=== PATIENT | male | born 1995 | race African-American/Black ===

== ENCOUNTER 2018-03-18 13:59 | Emergency (ER) | payer MEDICAID, OTHER ==
[~2018-03-18] VITALS: Ht 185.4 cm; Wt 106.5 kg
[2018-03-18 14:28] VITALS: BP 147/102
[2018-03-18 14:51] LABS: BASOPHILS # (AUTO) 0.1 X10'3 (0-0.2); BASOPHILS % (AUTO) 1.2 % (0-1); EOSINOPHILS # (AUTO) 0.2 X10'3 (0-0.9); EOSINOPHILS % (AUTO) 2.5 % (0-6); HEMATOCRIT 48.5 % (42.0-52.0); HEMOGLOBIN 15.9 g/dl (14.0-17.9); LYMPHOCYTES # (AUTO) 1.7 X10'3 (1.1-4.8); LYMPHOCYTES % (AUTO) 21.2 % (21-51); MEAN CORPUSCULAR HEMOGLOBIN 32.3 PG (27.0-31.0); MEAN CORPUSCULAR HGB CONC 32.7 % (33.0-36.5); MEAN CORPUSCULAR VOLUME 98.5 FL (78-98); MEAN PLATELET VOLUME 7.2 FL (7.4-10.4); MONOCYTES # (AUTO) 0.5 X10'3 (0-0.9); MONOCYTES % (AUTO) 5.9 % (2-12); NEUTROPHILS # (AUTO) 5.6 X10'3 (1.8-7.7); NEUTROPHILS % (AUTO) 69.2 % (42-75); PLATELET COUNT 375 X10'3 (140-440); RED BLOOD COUNT 4.93 X10'6 (4.70-6.10); RED CELL DISTRIBUTION WIDTH 13.1 % (11.5-14.5); WHITE BLOOD COUNT 8.1 X10'3 (4.5-11.0)
[2018-03-18 15:01] LABS: CLARITY,URINE CLEAR (Clear); COLOR,URINE YELLOW (Yellow); UA COLLECTION TYPE CLN CATCH MIDSTREAM
[2018-03-18 15:02] LABS: GLUCOSE, URINE NEGATIVE (Neg); KETONES,URINE NEGATIVE (Neg); LEUKOCYTE ESTERASE ,URINE NEGATIVE (Neg); NITRITES, URINE NEGATIVE (Neg); OCCULT BLOOD,URINE NEGATIVE (Neg); PROTEIN,URINE TRACE mg/dl (Neg)
[2018-03-18 15:06] LABS: ALANINE AMINOTRANSFERASE 18 U/L (12-78); ALBUMIN 3.8 G/DL (3.4-5.0); ALBUMIN/GLOBULIN RATIO 0.9 (1.1-1.5); ALKALINE PHOSPHATASE 51 IU/L (46-116); ANION GAP 12 (8-16); ASPARTATE AMINO TRANSFERASE 25 U/L (10-37); BILIRUBIN,TOTAL 0.5 MG/DL (0.1-1.0); BLOOD UREA NITROGEN 12 MG/DL (7-18); CHLORIDE 103 MMOL/L (99-107); GLUCOSE 95 MG/DL (70-104); INR 1.1 INR; POTASSIUM 3.9 MMOL/L (3.5-5.1); PROTHROMBIN TIME 10.8 SECONDS (9.0-12.0); SODIUM 141 MMOL/L (135-145); TOTAL CARBON DIOXIDE 26.4 MMOL/L (24-32); TOTAL PROTEIN 8.1 G/DL (6.4-8.2); eGFR 90 ML/MIN
[2018-03-18 15:07] LABS: BACTERIA,URINE NONE SEEN /HPF (Neg); MUCUS STRANDS FEW /LPF (Neg); RBC,URINE 0-2 /HPF (0-2); SQUAMOUS EPITHELIAL CELL,UR FEW /LPF (FEW); WBC,URINE 0-4 /HPF (0-4)
[2018-03-18] MEDS ORDERED: proCHLORperazine 10 MG/2 ml inj IV ONE (15:55)
[2018-03-18] MEDS ORDERED: normal saline 1000ML IV soln IVB ONE ×2 (15:55)
[2018-03-18] MEDS ORDERED: pantoprazole 40 MG vial IV ONE (15:55)
[2018-03-18 16:13] LABS: LIPASE 112 U/L (73-393)
[2018-03-18] MEDS ORDERED: PANT-47 PO (16:33)
== END 2018-03-18 16:51 | disposition home or self-care (01) ==
LOC: ER 13:59
DX: R10.13 Epigastric pain (principal); R10.33 Periumbilical pain; F12.90 Cannabis use, unspecified, uncomplicated; F14.90 Cocaine use, unspecified, uncomplicated; F17.200 Nicotine dependence, unspecified, uncomplicated
CPT/HCPCS: 36415; 80053; 81001; 83690; 85025; 85610; 96374; 96375; 99283; C9113; J0780; J7030

== ENCOUNTER 2019-07-21 13:05 | Emergency (ER) | payer MEDICAID, OTHER ==
[~2019-07-21] VITALS: Ht 188 cm; Wt 125.0 kg
[~2019-07-21 13:05] MED LIST: PANT-47 PO
[2019-07-21 13:11] VITALS: BP 161/97
[2019-07-21] MEDS ORDERED: AMO250L PO (13:33)
[2019-07-21] MEDS ORDERED: IBUP100O20 PO (13:33)
== END 2019-07-21 13:40 | disposition home or self-care (01) ==
LOC: ER 13:06
DX: J02.9 Acute pharyngitis, unspecified (principal); F12.90 Cannabis use, unspecified, uncomplicated; F14.90 Cocaine use, unspecified, uncomplicated; Z79.2 Long term (current) use of antibiotics; Z79.899 Other long term (current) drug therapy
CPT/HCPCS: 99283

== ENCOUNTER 2020-05-20 08:11 | Emergency (ER) | payer MEDICAID, OTHER ==
[~2020-05-20] VITALS: Ht 185.4 cm; Wt 99.0 kg
[2020-05-20] MEDS ORDERED: pantoprazole 40 MG vial IV ONE (08:55)
[2020-05-20] MEDS ORDERED: ondansetron/PF 4mg/2ml inj IV ONE (08:55)
[2020-05-20] MEDS ORDERED: normal saline 1000ML IV soln IVB ONE (08:55)
[2020-05-20 09:18] VITALS: BP 146/94
[2020-05-20 09:34] LABS: BASOPHILS % (AUTO) 0.1 % (0-1); EOSINOPHILS # (AUTO) 0.1 X10'3 (0-0.9); EOSINOPHILS % (AUTO) 1.3 % (0-6); HEMATOCRIT 43.5 % (42.0-52.0); HEMOGLOBIN 14.8 g/dl (14.0-17.9); LYMPHOCYTES # (AUTO) 1.2 X10'3 (1.1-4.8); LYMPHOCYTES % (AUTO) 12.2 % (21-51); MEAN CORPUSCULAR HEMOGLOBIN 33.5 PG (27.0-31.0); MEAN CORPUSCULAR VOLUME 98.5 FL (78-98); MEAN PLATELET VOLUME 7.2 FL (7.4-10.4); MONOCYTES # (AUTO) 0.7 X10'3 (0-0.9); NEUTROPHILS # (AUTO) 8.1 X10'3 (1.8-7.7); NEUTROPHILS % (AUTO) 79.4 % (42-75); PLATELET COUNT 372 X10'3 (140-440); RED BLOOD COUNT 4.41 X10'6 (4.70-6.10); RED CELL DISTRIBUTION WIDTH 13.6 % (11.5-14.5); WHITE BLOOD COUNT 10.2 X10'3 (4.5-11.0)
[2020-05-20 09:56] LABS: ALANINE AMINOTRANSFERASE 26 U/L (12-78); ALBUMIN 3.8 G/DL (3.4-5.0); ALKALINE PHOSPHATASE 44 IU/L (46-116); ANION GAP 7 (8-16); ASPARTATE AMINO TRANSFERASE 45 U/L (10-37); BILIRUBIN,TOTAL 0.7 MG/DL (0.1-1.0); CALCIUM 8.9 MG/DL (8.5-10.1); CHLORIDE 104 MMOL/L (99-107); CREATININE 1.22 MG/DL (0.60-1.10); ETHANOL < 0.010 GM/DL (0.0-0.010); GLUCOSE 83 MG/DL (70-104); LIPASE < 50 U/L (73-393); POTASSIUM 3.7 MMOL/L (3.5-5.1); SODIUM 140 MMOL/L (135-145); TOTAL CARBON DIOXIDE 28.7 MMOL/L (24-32); TOTAL PROTEIN 7.8 G/DL (6.4-8.2); eGFR 87 ML/MIN
[2020-05-20 09:58] LABS: BLOOD UREA NITROGEN 18 MG/DL (7-18); BUN/CREATININE RATIO 14.8 (5.4-32.0)
[2020-05-20 11:15] LABS: URINE AMPHETAMINE SCREEN NEGATIVE (Neg); URINE BARBITUATE SCREEN NEGATIVE (Neg); URINE BENZODIAZEPINES SCREEN NEGATIVE (Neg); URINE CANNABINOID SCREEN POSITIVE (Neg); URINE COCAINE SCREEN POSITIVE (Neg); URINE METHADONE SCREEN NEGATIVE (Neg); URINE OPIATE SCREEN NEGATIVE (Neg); URINE PHENCYCLIDINE SCREEN NEGATIVE (Neg)
== END 2020-05-20 11:01 | disposition left against medical advice (07) ==
LOC: ER 08:11
DX: K29.00 Acute gastritis without bleeding (principal); F17.200 Nicotine dependence, unspecified, uncomplicated; F12.90 Cannabis use, unspecified, uncomplicated; F11.90 Opioid use, unspecified, uncomplicated; Z72.89 Other problems related to lifestyle; Z79.899 Other long term (current) drug therapy
CPT/HCPCS: 36415; 80053; 80305; 80320; 83690; 85025; 96361; 96374; 96375; 99284; C9113; J2405; J7030

== ENCOUNTER 2020-07-01 22:41 | Emergency (ER) | payer MEDICAID, OTHER ==
[~2020-07-01] VITALS: Ht 182.9 cm; Wt 104.5 kg
[2020-07-01 22:44] VITALS: BP 172/107
== END 2020-07-01 23:19 | disposition home or self-care (01) ==
LOC: ER 22:41
DX: Z02.89 Encounter for other administrative examinations (principal); F12.90 Cannabis use, unspecified, uncomplicated; Z72.89 Other problems related to lifestyle; Z79.899 Other long term (current) drug therapy
CPT/HCPCS: 99281

== ENCOUNTER 2022-09-15 19:16 | Inpatient (IN) | payer MEDICAID, OTHER ==
[~2022-09-15] VITALS: Ht 182.9 cm; Wt 107.1 kg
[2022-09-15 19:51] LABS: CLARITY,URINE SLIGHTLY CLOUDY (Clear); COLOR,URINE YELLOW (Yellow); GLUCOSE, URINE NEGATIVE (Neg); KETONES,URINE TRACE mg/dl (Neg); LEUKOCYTE ESTERASE ,URINE NEGATIVE (Neg); NITRITES, URINE NEGATIVE (Neg); OCCULT BLOOD,URINE NEGATIVE (Neg); PH,URINE 6.5 (4.8-8.0); PROTEIN,URINE 100 mg/dl (Neg)
[2022-09-15 19:56] LABS: MUCUS STRANDS MANY /LPF (Neg); UA COLLECTION TYPE CLN CATCH MIDSTREAM
[2022-09-15 19:57] LABS: SQUAMOUS EPITHELIAL CELL,UR FEW /LPF (FEW)
[2022-09-15 19:59] LABS: WBC,URINE 0-4 /HPF (0-4)
[2022-09-15 20:00] LABS: AMORPHOUS URATES 1+; BACTERIA,URINE 1+ /HPF (Neg)
[2022-09-15 20:36] LABS: BASOPHILS % (AUTO) 0.2 % (0-1); EOSINOPHILS % (AUTO) 0.1 % (0-6); HEMATOCRIT 44.8 % (42.0-52.0); HEMOGLOBIN 15.5 g/dl (14.0-17.9); LYMPHOCYTES % (AUTO) 7.4 % (21-51); MEAN CORPUSCULAR HGB CONC 34.6 g/dL (33.0-36.5); MEAN CORPUSCULAR VOLUME 95.4 FL (78-98); MONOCYTES # (AUTO) 0.7 X10'3 (0-0.9); MONOCYTES % (AUTO) 5.3 % (2-12); PLATELET COUNT 420 X10'3 (140-440); RED CELL DISTRIBUTION WIDTH 13.6 % (11.5-14.5); WHITE BLOOD COUNT 13.8 X10'3 (4.5-11.0)
[2022-09-15 20:51] LABS: ALANINE AMINOTRANSFERASE 17 U/L (12-78); ALBUMIN 4.1 G/DL (3.4-5.0); ALKALINE PHOSPHATASE 67 IU/L (46-116); ANION GAP 10 (8-16); ASPARTATE AMINO TRANSFERASE 16 U/L (10-37); BILIRUBIN,TOTAL 0.8 MG/DL (0.1-1.0); BLOOD UREA NITROGEN 9 MG/DL (7-18); BUN/CREATININE RATIO 7.6 (10.0-20.0); CALCIUM 9.6 MG/DL (8.5-10.1); CHLORIDE 100 MMOL/L (99-107); CREATININE 1.18 MG/DL (0.60-1.10); GLUCOSE 120 MG/DL (70-104); LIPASE < 50 U/L (73-393); POTASSIUM 3.7 MMOL/L (3.5-5.1); SODIUM 138 MMOL/L (135-145); TOTAL CARBON DIOXIDE 27.8 MMOL/L (24-32); TOTAL PROTEIN 8.3 G/DL (6.4-8.2); eGFR 88 ML/MIN
[2022-09-15] MEDS ORDERED: ondansetron/PF 4mg/2ml inj IV ONE (21:10)
[2022-09-15] MEDS ORDERED: morphine 4 MG/ML inj SYRINge IV PRN (21:10)
[2022-09-15] MEDS ORDERED: normal saline 1000ML IV soln IVB ONE (21:10)
[2022-09-15] MEDS ORDERED: ketorolac trometh. 30mg/ml inj. IV ONE (21:10)
[2022-09-15] MEDS ORDERED: piperacillin/tazo 3.375gm/50ml 50 ML IV ONE (21:55)
[2022-09-15 22:03] LABS: ANISOCYTOSIS FEW; PLATELET ESTIMATE NORMAL; TOTAL CELLS COUNTED 100; TOXIC VACUOLATION 1+
[2022-09-15 22:04] LABS: LARGE PLATELETS FEW
[2022-09-15] MEDS ORDERED: potassium Cl 40MEQ/1/2NS 520ml 520 ML IV PRN (22:35)
[2022-09-15] MEDS ORDERED: magnesium 2GM in 50ml NS 50 ML IV PRN (22:35)
[2022-09-15] MEDS ORDERED: magnesium 4gm in 100ml NS 100 ML IV PRN (22:35)
[2022-09-15] MEDS ORDERED: ondansetron/PF 4mg/2ml inj IV PRN (22:35)
[2022-09-15] MEDS ORDERED: acetaminophen 325mg tablet PO PRN (22:35)
[2022-09-15] MEDS: normal saline 1000ml 1,000 ML IV SCH (22:59)
[2022-09-15 23:30] VITALS: BP 150/64
--- NOTE | 2022-09-15 23:57 | NUR ---
Pt arrived to room, assessment done, patient is in minimal pain at this time and ready to sleep. Pt is pleasant and appears to be doing well at this time. Pt will call if pain increases.
[2022-09-16] VITALS (19 sets, daily range): BP systolic 130–159; BP diastolic 70–108
[2022-09-16] MEDS: morphine 2 MG/ML inj. syringe IV PRN ×3 (03:21→11:23)
[2022-09-16] MEDS: piperacillin/tazo 3.375gm/50ml 50 ML IV SCH ×3 (06:40→22:56)
--- NOTE | 2022-09-16 06:50 | NUR ---
PT SLEEPING COMFORTABLY AT THIS TIME. SIA RN TO TAKE OVER CARE.
--- NOTE | 2022-09-16 07:02 | NUR ---
Patient in room ORTHO 4022. I have received report from ROCÍO CARVALHO and had the opportunity to ask questions and assume patient care.
[2022-09-16] MEDS: K and/or MAG REPLACEMENT MC SCH ×2 (08:00→20:00)
[2022-09-16] MEDS: normal saline 1000ml 1,000 ML IV SCH ×2 (08:35→19:45)
[2022-09-16 08:41] LABS: BASOPHILS % (AUTO) 0.1 % (0-1); EOSINOPHILS # (AUTO) 0.1 X10'3 (0-0.9); EOSINOPHILS % (AUTO) 0.9 % (0-6); HEMATOCRIT 41.2 % (42.0-52.0); HEMOGLOBIN 14.1 g/dl (14.0-17.9); LYMPHOCYTES # (AUTO) 1.5 X10'3 (1.1-4.8); LYMPHOCYTES % (AUTO) 11.7 % (21-51); MEAN CORPUSCULAR HEMOGLOBIN 32.7 PG (27.0-31.0); MEAN CORPUSCULAR HGB CONC 34.2 g/dL (33.0-36.5); MEAN CORPUSCULAR VOLUME 95.6 FL (78-98); MEAN PLATELET VOLUME 7.4 FL (7.4-10.4); MONOCYTES # (AUTO) 1.3 X10'3 (0-0.9); MONOCYTES % (AUTO) 10.3 % (2-12); NEUTROPHILS # (AUTO) 9.8 X10'3 (1.8-7.7); PLATELET COUNT 390 X10'3 (140-440); RED BLOOD COUNT 4.31 X10'6 (4.70-6.10); RED CELL DISTRIBUTION WIDTH 13.8 % (11.5-14.5); WHITE BLOOD COUNT 12.7 X10'3 (4.5-11.0)
[2022-09-16 09:05] LABS: ALANINE AMINOTRANSFERASE 9 U/L (12-78); ALBUMIN/GLOBULIN RATIO 0.8 (1.1-1.5); ALKALINE PHOSPHATASE 52 IU/L (46-116); ANION GAP 10 (8-16); ASPARTATE AMINO TRANSFERASE 17 U/L (10-37); BILIRUBIN,TOTAL 0.7 MG/DL (0.1-1.0); BLOOD UREA NITROGEN 9 MG/DL (7-18); BUN/CREATININE RATIO 8.8 (10.0-20.0); CALCIUM 8.3 MG/DL (8.5-10.1); CHLORIDE 105 MMOL/L (99-107); CREATININE 1.02 MG/DL (0.60-1.10); GLUCOSE 93 MG/DL (70-104); POTASSIUM 3.6 MMOL/L (3.5-5.1); SODIUM 140 MMOL/L (135-145); TOTAL CARBON DIOXIDE 24.7 MMOL/L (24-32); TOTAL PROTEIN 6.7 G/DL (6.4-8.2); eGFR > 90 ML/MIN
--- NOTE | 2022-09-16 10:30 | NUR ---
PT STATES THAT HE IS VERY STRESSED OUT AND DOES NOT WANT TO LIVE. STATES THAT HE IS NOT SUICIDAL JUST NO DESIRE TO BE ALIVE. FEELS LIKE NOBODY IN HIS LIFE LIKES HIM OR CARES ABOUT HIM. STATES THAT HE IS NOT WILL TO TALK WITH CHILD CARE SPECIALIST, HOWEVER SOCIAL SERVICE CONSULT HAS BEEN PLACED, NOTIFIED. Addendum: 09/16/22 at 1130 by Desire Ta RN PER , NO SIT NEEDED AT THIS TIME. SS CONSULT AND CONT TO MONITOR PT AT THIS TIME
[2022-09-16] MEDS ORDERED: NO HOME MEDS (13:24)
[2022-09-16] MEDS ORDERED: LIDOcaine 1% 30ml preserv. free vial ONE (13:59)
[2022-09-16] MEDS ORDERED: BUPIVAcaine/PF 2.5 mg/ml (0.25%) 30ml vial ONE (13:59)
[2022-09-16] MEDS ORDERED: meperidine/PF 25mg/ml syringe IV PRN ×3 (15:05)
[2022-09-16] MEDS ORDERED: acetaminophen 1,000mg/100ml IV 100 ML IV PRN (15:05)
[2022-09-16] MEDS ORDERED: proCHLORperazine 10 MG/2 ml inj IV PRN (15:05)
[2022-09-16] MEDS ORDERED: morphine 2 MG/ML inj. syringe IV PRN (15:05)
[2022-09-16] MEDS ORDERED: morphine 4 MG/ML inj SYRINge IV PRN (15:05)
[2022-09-16] MEDS ORDERED: hydrALAZINE 20mg/ml inj. IV PRN (15:05)
[2022-09-16] MEDS ORDERED: ringers solution, lacted 1,000 ML IV SCH (15:05)
[2022-09-16] MEDS ORDERED: ondansetron/PF 4mg/2ml inj IV PRN (15:05)
[2022-09-16] MEDS ORDERED: ketorolac trometh. 30mg/ml inj. IV ONE (15:05)
[2022-09-16] MEDS ORDERED: sevoflurane 250ml liquid IH ONE (15:40)
[2022-09-16] MEDS ORDERED: midazolam 1 mg/ML 2ml injection ONE (15:48)
[2022-09-16] MEDS ORDERED: LIDOcaine 2% (20mg/ml) 5ml vial ONE (16:06)
[2022-09-16] MEDS ORDERED: rocuronium 10mg/ml inj IV ONE (16:06)
[2022-09-16] MEDS ORDERED: propofol inj 20 ML IV ONE (16:06)
[2022-09-16] MEDS ORDERED: fentaNYL /PF 50mcg/ml 5ml ampule ONE (16:06)
[2022-09-16] MEDS ORDERED: ondansetron/PF 4mg/2ml inj ONE (16:06)
[2022-09-16] MEDS ORDERED: dexamethasone sod phosphate 4mg/ml inj. ONE (16:07)
[2022-09-16] MEDS ORDERED: glycopyrrolate 0.2mg/ml inj ONE (16:34)
[2022-09-16] MEDS ORDERED: neostigmine methylsulfate 1 MG/ML 10ml vial ONE (16:35)
--- NOTE | 2022-09-16 17:00 | NUR ---
Received from OR via BED, accompanied by Anesthesiologist-DR. SHEA and repoRT GIVEN, PATIENT WAKING UP, NO S/S OF PAIN, V/S WNL, SCD ON, 20G TO LUE, ABDOMEN LAP SITE CLEAN W/ NO S/S OF COMPLICATIONS
[2022-09-16] MEDS ORDERED: ketorolac tromethamine 15mg/ml inj. IV SCH (17:30)
[2022-09-16] MEDS ORDERED: naloxone 0.4 mg/ml inj IV PRN (17:30)
[2022-09-16] MEDS: labetalol 20mg/4ml (5mg/ml) syringe IV PRN ×2 (17:36→17:49)
--- NOTE | 2022-09-16 18:03 | NUR ---
PT RESTING QUIETLY, DENIES PAIN, VSS-EXCEPT BP ELEVATED-TREATED WITH LABETALOL AND HYDRALAZINE, LAP SITES UNCHANGED.
--- NOTE | 2022-09-16 18:30 | NUR ---
PT AWAKE, DOING WELL, ABLE TO VOID, TOLERATING FLUIDS, SEEMS TO HAVE AN ANXIOUS PERSONALITY-ASKING LOTS OF QUESTIONS, MOVES ALOT WHEN AWAKE, ONCE IN PT'S ROOM ON ORTHO PT STARTED TALKING MORE...WHEN TOLD BP WAS HIGH PT ADMITTED TO USING A BP MED "TRIPLE C - CORACIDIN, UP TO 12 PILLS A DAY TO GET HIGH" SAID HE TOOK IT STARTING AT 10 YEARS OLD, " MAYBE THAT'S WHY MY BLOOD PRESSURE IS HIGH". ENCOURAGED HIM TO SHARE THAT WITH HIS DR'S AND TO ASK FOR PAIN MEDS WHEN NEEDED- PT DID STATE DIFFICULTY SWALLOWING PILLS, STATES "THROWS THEM BACK UP, NO MATTER HOW I TAKE THEM". VSS-BP STILL SLIGHTLY ELEVATED. BED LOW, CALL LIGHT PRESENT AND 2 RAILS UP. REPORT CALLED- ALL QUESTIONS ANSWERED, TOOL PLANNER IN TO ACCEPT PT, ATTACHED TO MONITORS, EATING JELLO AND BROTH.
--- NOTE | 2022-09-16 18:45 | NUR ---
Patient in room ORTHO 4022. I have received report from MAIA STOVALL and had the opportunity to ask questions and assume patient care.
--- NOTE | 2022-09-16 18:45 | NUR ---
Problems reprioritized. Patient report given, questions answered & plan of care reviewed with SHARATH INGRAM RN.
[2022-09-16] MEDS ORDERED: acetaminophen 325mg tablet PO SCH (20:00)
[2022-09-17 02:00] VITALS: BP 140/99
[2022-09-17] MEDS: morphine 2 MG/ML inj. syringe IV PRN (03:20)
--- NOTE | 2022-09-17 05:11 | NUR ---
ROUND THE CLOCK PAIN MEDICINE WERE NOT GIVEN LAST NIGHT (TORADOL INJ AND TYLENOL TABLET) AND LET MY CHARGE NURSE KNOW ABOUT IT. SHE ADVISED ME TO CALL PHARMACY FOR ADJUSTMENT. PHARMACIST JOELLE WILL DO IT.
[2022-09-17 06:00] VITALS: BP 138/73
[2022-09-17 06:24] LABS: ALANINE AMINOTRANSFERASE 13 U/L (12-78); ALBUMIN 2.9 G/DL (3.4-5.0); ALBUMIN/GLOBULIN RATIO 0.7 (1.1-1.5); ALKALINE PHOSPHATASE 51 IU/L (46-116); ANION GAP 9 (8-16); ASPARTATE AMINO TRANSFERASE 19 U/L (10-37); BILIRUBIN,TOTAL 0.5 MG/DL (0.1-1.0); BLOOD UREA NITROGEN 9 MG/DL (7-18); CALCIUM 8.8 MG/DL (8.5-10.1); CHLORIDE 103 MMOL/L (99-107); CREATININE 1.12 MG/DL (0.60-1.10); GLUCOSE 101 MG/DL (70-104); MAGNESIUM 2.1 MG/DL (1.5-2.4); POTASSIUM 3.7 MMOL/L (3.5-5.1); SODIUM 137 MMOL/L (135-145); TOTAL CARBON DIOXIDE 25.4 MMOL/L (24-32); eGFR > 90 ML/MIN
--- NOTE | 2022-09-17 06:28 | NUR ---
Problems reprioritized. Patient report given, questions answered & plan of care reviewed with MAIA ALFORD.
[2022-09-17 06:37] LABS: BASOPHILS % (AUTO) 0.3 % (0-1); EOSINOPHILS % (AUTO) 0.1 % (0-6); HEMATOCRIT 40.2 % (42.0-52.0); HEMOGLOBIN 13.6 g/dl (14.0-17.9); LYMPHOCYTES # (AUTO) 1.4 X10'3 (1.1-4.8); LYMPHOCYTES % (AUTO) 10.3 % (21-51); MEAN CORPUSCULAR HEMOGLOBIN 32.5 PG (27.0-31.0); MEAN CORPUSCULAR HGB CONC 33.9 g/dL (33.0-36.5); MEAN CORPUSCULAR VOLUME 96.1 FL (78-98); MEAN PLATELET VOLUME 7.7 FL (7.4-10.4); MONOCYTES % (AUTO) 7.2 % (2-12); NEUTROPHILS # (AUTO) 11.2 X10'3 (1.8-7.7); NEUTROPHILS % (AUTO) 82.1 % (42-75); PLATELET COUNT 378 X10'3 (140-440); RED BLOOD COUNT 4.18 X10'6 (4.70-6.10); RED CELL DISTRIBUTION WIDTH 13.6 % (11.5-14.5); WHITE BLOOD COUNT 13.6 X10'3 (4.5-11.0)
--- NOTE | 2022-09-17 06:44 | NUR ---
Patient in room ORTHO 4022. I have received report from Fidelina Guevara and had the opportunity to ask questions and assume patient care.
[2022-09-17] MEDS ORDERED: acetaminophen 325mg tablet PO SCH (07:00)
[2022-09-17] MEDS ORDERED: ketorolac tromethamine 15mg/ml inj. IV SCH (07:00)
[2022-09-17] MEDS: piperacillin/tazo 3.375gm/50ml 50 ML IV SCH (07:20)
[2022-09-17] MEDS: normal saline 1000ml 1,000 ML IV SCH (07:20)
[2022-09-17 10:00] VITALS: BP 165/101
[2022-09-17] MEDS ORDERED: HYDROcodone/acetaminophen 5mg/325mg tablet PO PRN (11:00)
[2022-09-17] MEDS ORDERED: HYDR-3965 PO (11:12)
--- NOTE | 2022-09-17 12:10 | NUR ---
Discharge instructions were reviewed with patient. Patient was able to dress himself, gather his belongings and was accompanied to the front door to be discharged home.
== END 2022-09-17 12:10 | disposition home or self-care (01) | DRG 343 ==
LOC: ER 19:17 → ORTHO 4S 22:32 → UNDOADMIN 22:32 → ORTHO 4S 22:35
PROVIDERS: ADMIT Internal Medicine; ATTEND Internal Medicine
PROC: 0DTJ4ZZ Resection of Appendix, Percutaneous Endoscopic Approach (ICD-10-PCS; principal; 2022-09-15)
PROC: 8E0W4CZ Robotic Assisted Procedure of Trunk Region, Percutaneous Endoscopic Approach (ICD-10-PCS; 2022-09-15)
DX: K35.30 Acute appendicitis with localized peritonitis, without perforation or gangrene (principal); F17.200 Nicotine dependence, unspecified, uncomplicated; F10.10 Alcohol abuse, uncomplicated; Z56.0 Unemployment, unspecified; Z79.899 Other long term (current) drug therapy
CPT/HCPCS: 36415; 74176; 80053; 81001; 82948; 83690; 83735; 84132; 85007; 85025; 87081; 99285; A4215; A4618; G0378; J0131; J0360; J1100; J1885; J2250; J2270; J2405; J2543; J2704; J2710; J3010; J3490; J7030; J7120

== ENCOUNTER 2023-01-16 11:34 | Emergency (ER) | payer MEDICAID ==
[~2023-01-16] VITALS: Ht 185.4 cm; Wt 111.3 kg
[2023-01-16 11:37] VITALS: BP 162/81; PULSE 120; RESP 18; TEMP 98.2; O2SAT 98
[2023-01-16] MEDS ORDERED: acetaminophen 325mg tablet PO ONE (12:50)
[2023-01-16] MEDS ORDERED: ibuprofen tablet 400 MG TABLET PO ONE (12:50)
[2023-01-16 13:19] LABS: STREP A SCREEN POSITIVE (Neg)
[2023-01-16] MEDS ORDERED: NAPR-56 PO (13:25)
[2023-01-16] MEDS ORDERED: AMOX-117 PO (13:25)
== END 2023-01-16 13:42 | disposition home or self-care (01) ==
LOC: ER 11:35
DX: J02.9 Acute pharyngitis, unspecified (principal); Z79.899 Other long term (current) drug therapy
CPT/HCPCS: 87880; 99283

== ENCOUNTER 2024-01-08 09:08 | Emergency (ER) | payer MEDICAID ==
[~2024-01-08] VITALS: Ht 182.9 cm; Wt 104.5 kg
[~2024-01-08 09:08] MED LIST changes: +NO HOME MEDS; -PANT-47 PO; +PANT40TA54 PO
[2024-01-08 09:21] VITALS: BP 125/85; PULSE 106; RESP 16; TEMP 99; O2SAT 99
== END 2024-01-08 13:59 | disposition left against medical advice (07) ==
LOC: ER 09:09
DX: M79.604 Pain in right leg (principal); M79.89 Other specified soft tissue disorders; Z53.21 Procedure and treatment not carried out due to patient leaving prior to being seen by health care provider

== ENCOUNTER 2024-01-08 19:03 | Emergency (ER) | payer MEDICAID ==
[~2024-01-08] VITALS: Ht 182.9 cm; Wt 109.1 kg
[2024-01-08 19:12] VITALS: BP 176/105; PULSE 108; TEMP 97.8; O2SAT 97
[2024-01-08 20:01] VITALS: RESP 18
== END 2024-01-08 20:03 | disposition left against medical advice (07) ==
LOC: ER 19:04
DX: M79.661 Pain in right lower leg (principal); M79.89 Other specified soft tissue disorders; Z53.21 Procedure and treatment not carried out due to patient leaving prior to being seen by health care provider

== ENCOUNTER 2024-01-08 22:16 | Emergency (ER) | payer MEDICAID ==
[~2024-01-08] VITALS: Ht 182.9 cm; Wt 81.8 kg
[2024-01-08 22:24] VITALS: BP 151/98; PULSE 11; RESP 19; TEMP 98.5; O2SAT 99
== END 2024-01-09 00:31 | disposition left against medical advice (07) ==
LOC: ER 22:16
DX: M79.671 Pain in right foot (principal); M79.89 Other specified soft tissue disorders; Z53.21 Procedure and treatment not carried out due to patient leaving prior to being seen by health care provider